=== PATIENT | male | born 1950 | race African-American/Black ===

== ENCOUNTER 2022-02-03 08:17 | Outpatient (CLI) | payer MEDICARE, BC | END 2022-02-03 08:18 | disposition home or self-care (01) | LOC: CSHULT 08:17 | PROVIDERS: ATTEND Family Medicine | DX: N18.32 Chronic kidney disease, stage 3b (principal) | CPT/HCPCS: 93975 ==

== ENCOUNTER 2025-06-12 07:05 | Outpatient (CLI) | payer MEDICARE, BC | END 2025-06-12 07:06 | disposition home or self-care (01) | LOC: CSHCT 07:05 | PROVIDERS: ATTEND Internal Medicine Nephrology | DX: N18.2 Chronic kidney disease, stage 2 (mild) (principal); Z94.0 Kidney transplant status; N26.1 Atrophy of kidney (terminal); N28.1 Cyst of kidney, acquired | CPT/HCPCS: 74176 ==